=== PATIENT | female | born 1995 | race Asian ===

== ENCOUNTER 2019-06-24 01:19 | Emergency (ER) | payer OTHER ==
[2019-06-24] MEDS ORDERED: NS 0.9% 1000 ML** 1,000 ML IV ONE (01:20)
[2019-06-24] MEDS ORDERED: Ondansetron INJ* 2 MG/ML VIAL IV ONE (01:20)
--- NOTE | 2019-06-24 01:52 | ED ---
Substance Abuse/Use - HPI Summary HPI Summary: Pt is a 23 y/o F presenting to the ED for alcohol intoxication, picked up at a bar. In room, pt is minimally responsive. Per EMS, pt had 4 beers and 3 shots of whiskey at a bar. Pt vomited and had bowel incontinence. Pt is in sinus bradycardia per EMS, otherwise stable. BG w EMS 120's. LEVEL 5 CAVEAT DUE TO INTOXICATION. - History Of Current Complaint Chief Complaint: EDSubstanceAbuse Stated Complaint: ETOH PER EMS Time Seen by Provider: 06/24/19 01:20 Hx Obtained From: EMS Hx From Patient Unobtainable Due To: Altered Mental Status Onset/Duration of Drug/ETOH Abuse: Minutes Ingestion History: Type/Name Of Drug - Alcohol, Amount Ingested - 4 beers, 3 shots of whiskey Severity Initially: Moderate Severity Currently: Moderate PMH/Surg Hx/FS Hx/Imm Hx Previously Healthy: Yes Infectious Disease History: No Infectious Disease History: Comment Only: Traveled Outside the [place] in Last 30 Days - unknown Review of Systems - ROS Summary Review of Systems Summary: LEVEL 5 CAVEAT DUE TO INTOXICATION. Negative: Fever - In vitals, 96.2 F Positive: Vomiting - Bile, Other - Fecal incontinence STAFF COUNSELOR All Other Systems Reviewed And Are Negative: Yes Physical Exam - Summary Physical Exam Summary: LEVEL 5 CAVEAT DUE TO INTOXICATION. Constitutional: Well-developed, Non-responsive, no signs of trauma, incontinent of stool. Skin: Warm, Dry HENT: Normocephalic; Atraumatic Eyes: Conjunctiva normal Neck: Musculoskeletal ROM normal neck. (-) JVD, (-) Stridor, (-) Nuchal rigidity Cardio: Rhythm regular, rate normal, Heart sounds normal; Intact distal pulses; Radial pulses are 2+ and symmetric. (-) Murmur Pulmonary/Chest wall: Effort normal. (-) Respiratory distress, (-) Wheezes, (-) Rales Abd: Soft, (-) tenderness, (-) Distension, (-) Guarding, (-) Rebound Musculoskeletal: (-) Edema Lymph: (-) Cervical adenopathy Neuro: Minimally responsive to painful stimuli. Psych: deferred Triage Information Reviewed: Yes Vital Signs On Initial Exam: Initial Vitals Temp Pulse Resp BP Pulse Ox 96.2 F 57 12 106/74 97 06/24/19 01:22 06/24/19 01:22 06/24/19 01:22 06/24/19 01:22 06/24/19 01:22 Vital Signs Reviewed: Yes Procedures - Sedation Patient Received Moderate/Deep Sedation with Procedure: No Diagnostics - Vital Signs Vital Signs Temp Pulse Resp BP Pulse Ox 06/24/19 01:22 96.2 F 57 12 106/74 97 - Laboratory Result Diagrams: 06/24/19 03:34 06/24/19 03:34 Lab Statement: Any lab studies that have been ordered have been reviewed, and results considered in the medical decision making process. Re-Evaluation - Re-Evaluation 1st re-eval Re-Evaluation Time: 06:40 Change: Improved Comment: At 06:40, pt is alert, oriented, and ambulating. Pt will be calling for ride home and is ready to be discharged. Course/Dx - Course Assessment/Plan: 31-year-old female presents w EtOH intoxication. On arrival to the emergency Department patient is somnolent, incontinence of stool. No signs of trauma. Will check labs including alcohol level, give fluids and reassess. Friend in waiting room. - Diagnoses Provider Diagnoses: Alcohol intoxication Discharge ED - Sign-Out/Discharge Documenting (check all that apply): Patient Departure - Discharge - Discharge Plan Condition: Stable Disposition: HOME Patient Education Materials: Alcohol Intoxication (ED) Referrals: [facility] [Outside] Additional Instructions: You were seen in the emergency department for alcohol intoxication. Please don' t drink and drive. It was a pleasure taking care of you today. - Billing Disposition and Condition Condition: STABLE Disposition: Home - Attestation Statements Document Initiated by Scribe: Yes Documenting Scribe: Reanna Larson Provider For Whom Aniya is Documenting (Include Credential): Dennis Reid MD Scribe Attestation: I, Reanna Larson, scribed for Dennis Reid MD on 06/24/19 at 0645. Scribe Documentation Reviewed: Yes Provider Attestation: The documentation as recorded by the scribe, Reanna Larson accurately reflects the service I personally performed and the decisions made by me, Dennis Reid MD Status of Scribe Document: Viewed
[2019-06-24 03:42] LABS: ABS Lymphocytes 1.2 10^3/ul (1.0-4.8); ABS Monocytes 0.5 10^3/ul (0-0.8); ABS Neutrophils 12.9 10^3/ul (1.5-7.7); Eosinophil % 0.1 %; Hematocrit 41 % (35-47); Hemoglobin 13.5 g/dL (12.0-16.0); Lymphocyte % 8.5 %; Mean Corpuscular HGB Conc 33 g/dL (31-36); Mean Corpuscular Hemoglobin 31 pg (27-31); Mean Corpuscular Volume 93 fL (80-97); Mean Platelet Volume 6.9 fL (7.4-10.4); Nucleated Red Blood Cells % 0.1; Platelet Count 294 10^3/uL (150-450); Red Blood Count 4.35 10^6 /uL (3.70-4.87); Red Cell Distribution Width 12 % (10-15); White Blood Count 14.7 10^3/uL (3.5-10.8)
[2019-06-24 03:54] LABS: Albumin 4.3 g/dL (3.2-5.2); Anion Gap 13 mmol/L (2-11); CO2 Carbon Dioxide 20 mmol/L (22-32); Calcium 8.7 mg/dL (8.6-10.3); Chloride 105 mmol/L (101-111); Potassium 3.6 mmol/L (3.5-5.0); Sodium 138 mmol/L (135-145)
[2019-06-24 04:00] LABS: ALT 10 U/L (7-52); AST 16 U/L (13-39); Albumin/Globulin Ratio 1.6 (1-3); Alkaline Phosphatase 67 U/L (34-104); BUN/Creatinine Ratio 16.1 (8-20); Blood Urea Nitrogen 10 mg/dL (6-24); EGFR Non-African American 121.5 (>60); Globulin 2.7 g/dL (2-4); Glucose 93 mg/dL (70-100)
[2019-06-24 04:18] LABS: HCG Pregnancy < 0.60 mIU/mL
[2019-06-24 04:24] LABS: Acetaminophen < 15 mcg/mL; Salicylate < 2.50 mg/dL (<30)
[2019-06-24 06:01] LABS: Alcohol 199 mg/dL (<10)
[2019-06-24 07:05] VITALS: BP 109/51
== END 2019-06-24 06:40 | disposition home or self-care (01) ==
LOC: ED 01:19
DX: F10.929 Alcohol use, unspecified with intoxication, unspecified (principal)
CPT/HCPCS: 36415; 80053; 80320; 80329; 84702; 85025; 96361; 96374; 99282; G0480; J2405